=== PATIENT | female | born 1990 | race Caucasian/White ===

== ENCOUNTER 2022-09-15 16:31 | Outpatient (CLI) | payer OTHER, SELFPAY ==
[2022-09-15 18:03] LABS: Cholesterol* 192 mg/dL (90-199); Glucose* 82 mg/dL (60-115)
[2022-09-15 18:04] LABS: HDL Cholesterol* 73 mg/dL (>=50); LDL Cholesterol Calculated 94 mg/dL (<100); Triglycerides* 125 mg/dL (40-149)
[2022-09-15 18:20] LABS: Vitamin D 25 Hydroxy* 37 ng/mL (30-80)
== END 2022-09-15 16:32 | disposition home or self-care (01) ==
PROVIDERS: Visit Provider Registered Nurse
DX: Z01.419 Encounter for gynecological examination (general) (routine) without abnormal findings (principal); R45.86 Emotional lability; Z13.6 Encounter for screening for cardiovascular disorders; Z13.1 Encounter for screening for diabetes mellitus
CPT/HCPCS: 80061; 82306; 82947; 84443

== ENCOUNTER 2022-11-06 12:09 | Outpatient (CLI) | payer OTHER, SELFPAY ==
[2022-11-06 12:24] VITALS: BP 100/59; PULSE 68
[2022-11-06 12:25] VITALS: BP 100/59; PULSE 68; PULSE 71; RESP 14; TEMP 36.9; O2SAT 98
[2022-11-06 13:14] VITALS: BP 100/59; PULSE 68; RESP 14; TEMP 36.9; O2SAT 98
== END 2022-11-06 13:20 | disposition home or self-care (01) ==
LOC: OB CLI 12:10 → OB 12:43
PROVIDERS: Visit Provider Obstetrics & Gynecology
DX: O03.9 Complete or unspecified spontaneous abortion without complication (principal)
CPT/HCPCS: 36415; 84702; 85461; 99211; J2791

== ENCOUNTER 2022-11-26 13:27 | Outpatient (CLI) | payer OTHER, SELFPAY ==
[2022-11-26 16:32] LABS: HCG Quantitative* < 2.39 mIU/mL
== END 2022-11-26 13:28 | disposition home or self-care (01) ==
PROVIDERS: Visit Provider Obstetrics & Gynecology
DX: O20.9 Hemorrhage in early pregnancy, unspecified (principal)
CPT/HCPCS: 84702

== ENCOUNTER 2023-03-23 12:20 | Outpatient (CLI) | payer OTHER, SELFPAY ==
--- NOTE | 2023-03-23 12:15 | CRLHL7_ITS ---
For Patients: As a result of the Century Cures Act, medical imaging exams and procedure reports are released immediately into your electronic medical record. You may view this report before your referring provider. If you have questions, please contact your health care provider. INDICATION: First trimester scan, establish dates. COMPARISON: None. TECHNIQUE: Real-time mckinney-scale imaging of the pelvis was performed. FINDINGS: pole is presence within an intrauterine gestational sac with a crown-rump length of 2.2 cm, 8 weeks 6 days. No heart tones. 3.2 cm simple cyst right ovary. Unremarkable left ovary. Prominent yolk sac measuring 6 millimeters. IMPRESSION: Nonviable intrauterine . Dictated by Junior Alfaro MD @ 03/23/2023 1:09:58 PM (Electronically Signed)
== END 2023-03-23 12:21 | disposition home or self-care (01) ==
LOC: US 12:20
PROVIDERS: Visit Provider Registered Nurse
DX: Z34.91 Encounter for supervision of normal pregnancy, unspecified, first trimester (principal)
CPT/HCPCS: 76817

== ENCOUNTER 2023-06-01 16:20 | Outpatient (CLI) | payer OTHER, SELFPAY | END 2023-06-01 16:21 | disposition home or self-care (01) | PROVIDERS: Visit Provider Obstetrics & Gynecology | DX: N96 Recurrent pregnancy loss (principal) | CPT/HCPCS: 84702 ==

== ENCOUNTER 2023-06-03 16:15 | Outpatient (CLI) | payer OTHER, SELFPAY | END 2023-06-03 16:16 | disposition home or self-care (01) | LOC: NFLDREF 06-04 08:22 | PROVIDERS: Visit Provider Obstetrics & Gynecology | DX: N96 Recurrent pregnancy loss (principal) | CPT/HCPCS: 84702 ==

== ENCOUNTER 2023-06-22 13:50 | Outpatient (CLI) | payer OTHER, SELFPAY ==
--- NOTE | 2023-06-22 14:00 | CRLHL7_ITS ---
For Patients: As a result of the Century Cures Act, medical imaging exams and procedure reports are released immediately into your electronic medical record. You may view this report before your referring provider. If you have questions, please contact your health care provider. INDICATION: First trimester scan, establish dates. COMPARISON: None. TECHNIQUE: Real-time mckinney-scale imaging of the pelvis was performed. FINDINGS: Sonographic imaging demonstrates a single living intrauterine gestation. The embryo demonstrates a regular cardiac rate measuring 154 beats per minute. The embryo`s crown-rump length measurement of 1.3 cm corresponds to a gestational age of 7 weeks 3 days with a sonographic due date of 02/05/2024. There is a normal-appearing yolk sac. There are no gross abnormalities noted within the embryo at this early state of development. The gestational sac has a normal appearance. There is a 3.1 x 0.8 x 2.5 cm perigestational hemorrhage. The amount of fluid within the sac appears appropriate for gestational age. The cervix is closed. The myometrium appears normal. The ovaries are of normal size. Corpus luteal cyst right ovary. There are no suspicious fluid collections noted in the cul-de-sac. IMPRESSION: Single living intrauterine with sonographic gestational age 7 weeks 3 days and sonographic due date 02/05/2024. Superior perigestational hemorrhage measuring 3.1 x 0.8 x 2.5 cm. Dictated by Junior Alfaro MD @ 06/23/2023 10:21:05 AM (Electronically Signed)
== END 2023-06-22 13:51 | disposition home or self-care (01) ==
LOC: US 13:51
PROVIDERS: Visit Provider Obstetrics & Gynecology
DX: Z34.91 Encounter for supervision of normal pregnancy, unspecified, first trimester (principal); O20.9 Hemorrhage in early pregnancy, unspecified; Z3A.01 Less than 8 weeks gestation of pregnancy
CPT/HCPCS: 76817

== ENCOUNTER 2023-06-22 15:02 | Outpatient (CLI) | payer OTHER, SELFPAY ==
[2023-06-22 22:04] LABS: Chlamydia DNA Amplified* NOT DETECTED (No Detected); GC DNA Amplified* NOT DETECTED (No Detected)
== END 2023-06-22 15:03 | disposition home or self-care (01) ==
PROVIDERS: Visit Provider Registered Nurse
DX: Z34.91 Encounter for supervision of normal pregnancy, unspecified, first trimester (principal); Z3A.01 Less than 8 weeks gestation of pregnancy
CPT/HCPCS: 86592; 86703; 86762; 86787; 86803; 86850; 86870; 86880; 86900; 86901; 87086; 87340; 87491; 87591

== ENCOUNTER 2023-09-14 13:58 | Outpatient (CLI) | payer OTHER, SELFPAY ==
--- NOTE | 2023-09-14 14:00 | CRLHL7_ITS ---
For Patients: As a result of the Century Cures Act, medical imaging exams and procedure reports are released immediately into your electronic medical record. You may view this report before your referring provider. If you have questions, please contact your health care provider. INDICATION: Evaluate anatomy. COMPARISON: 06/22/2023 TECHNIQUE: Real time mckinney scale imaging of the fetus was performed as well as color Doppler analysis of the umbilical vessels. FINDINGS: Sonographic imaging demonstrates a single living intrauterine gestation. Fetus demonstrates a regular cardiac rate of 152 beats per minute. Fetus has a variable position. The placenta lies posteriorly. Complete previa noted. This is confirmed with transvaginal imaging. Amniotic fluid volume appears normal. Single deepest vertical pocket: 4.4 cm. The cervix is closed and measures 3.2 cm in length. The composite ultrasound gestational age is calculated at 19 weeks 6 days with an estimated sonographic due date of 02/02/2024. The estimated weight is 335 grams which lies at the 54th %. The following biometric measurements were obtained: Biparietal diameter: 4.4 cm/19 weeks 2 days 23rd% Head circumference: 16.7 cm/19 weeks 2 days 16th% Abdominal circumference: 15.6 cm/20 weeks 5 days 70th% Femur length: 3.1 cm/19 weeks 5 days 32nd% The HC/AC ratio measures: 1.07 range (1.08-1.26) On anatomic survey, there is a normal appearance of the cerebral ventricles, cavum septi pellucidi, cisterna magna and cerebellum. The nose, lips, and facial profile appear normal. The cervical, thoracic and lumbar spine are well visualized and appear normal. There is a normal four-chamber heart view and the left and right ventricular outflow tracts appear normal. The diaphragm and stomach appear normal. The kidneys and bladder also appear normal. There is a normal three-vessel cord and cord insertion site. The four extremities appear normal. IMPRESSION: Concordance of clinical and sonographic dating. Posterior placenta with complete previa. Echogenic focus in the stomach appears to be present. The remainder of the anatomic survey is normal. Level 2 ultrasound should be considered. Dictated by Junior Alfaro MD @ 09/15/2023 8:28:50 AM (Electronically Signed)
== END 2023-09-14 13:59 | disposition home or self-care (01) ==
LOC: US 13:59
PROVIDERS: Visit Provider Registered Nurse
DX: Z34.92 Encounter for supervision of normal pregnancy, unspecified, second trimester (principal); O44.02 Complete placenta previa NOS or without hemorrhage, second trimester; Z3A.19 19 weeks gestation of pregnancy
CPT/HCPCS: 76805; 76817

== ENCOUNTER 2023-11-09 15:06 | Outpatient (CLI) | payer OTHER, SELFPAY | END 2023-11-09 15:07 | disposition home or self-care (01) | LOC: NFLDREF 11-16 12:23 | PROVIDERS: Visit Provider Registered Nurse | DX: Z34.93 Encounter for supervision of normal pregnancy, unspecified, third trimester (principal); Z3A.28 28 weeks gestation of pregnancy | CPT/HCPCS: 86592; 86850 ==

== ENCOUNTER 2023-11-10 13:39 | Outpatient (CLI) | payer OTHER, SELFPAY | END 2023-11-10 13:40 | disposition home or self-care (01) | PROVIDERS: Visit Provider Registered Nurse | DX: Z34.93 Encounter for supervision of normal pregnancy, unspecified, third trimester (principal); O44.43 Low lying placenta NOS or without hemorrhage, third trimester; Z3A.28 28 weeks gestation of pregnancy | CPT/HCPCS: J2791 ==

== ENCOUNTER 2023-11-16 08:30 | Outpatient (CLI) | payer OTHER, SELFPAY | END 2023-11-16 08:31 | disposition home or self-care (01) | LOC: NFLDREF 11-21 05:44 | PROVIDERS: Visit Provider Registered Nurse | DX: Z34.90 Encounter for supervision of normal pregnancy, unspecified, unspecified trimester (principal) | CPT/HCPCS: 82951; 82952 ==

== ENCOUNTER 2024-01-04 14:44 | Outpatient (CLI) | payer OTHER, SELFPAY ==
[2024-01-05 13:32] LABS: Strep B DNA Probe POSITIVE (Negative)
[2024-01-05 13:48] LABS: Strep B Susceptibility Needed? No
== END 2024-01-04 14:45 | disposition home or self-care (01) ==
LOC: NFLDREF 14:45
PROVIDERS: Visit Provider Obstetrics & Gynecology
DX: Z34.93 Encounter for supervision of normal pregnancy, unspecified, third trimester (principal)
CPT/HCPCS: 87081; 87653

== ENCOUNTER 2024-01-31 18:42 | Emergency (ER) | payer OTHER, SELFPAY ==
[2024-01-31 18:47] VITALS: BP 116/73; PULSE 77; RESP 20; TEMP 36.5; O2SAT 97; BMI 26.7
--- NOTE | 2024-01-31 19:03 | ED.GENADULT ---
HPI - General Adult General Time Seen by Provider: 19:03 Date Seen: 01/31/24 Chief complaint: Cough Stated complaint: Coughed so hard heard pops-ribs hurt-40 wks preg Time Seen by Provider: 01/31/24 19:02 Source: patient and RN notes reviewed Mode of arrival: ambulatory Limitations: no limitations History of Present Illness HPI narrative: This 33-year-old female is coming in with left rib/chest wall pain that happened after coughing. She states she coughs so hard that she felt a pop in her left chest wall, now it hurts. She is 40 weeks , is not having any fevers. She has noticed the last 4 days some left nasal yellowish drainage, some pressure on that side. Nothing is coming out of the right side. She has been sick for about 2-3 weeks. She did a negative home COVID test. Her son was sick with a cough at some point, there was exposure to RSV in daycare. She did not test for RSV or influenza at any time, declines testing at this point. She has been sick with this for about 2-3 weeks already, is coming in because of the left chest wall pain. It is hurting to breathe and cough along the chest wall. He can her with movement as well. Related Data Home Medications Medication Instructions Recorded Confirmed docosahexaenoic acid 200 mg mg PO 09/15/22 01/31/24 capsule ( DHA) famotidine 20 mg tablet 20 mg PO QHS 12/08/23 01/31/24 Previous Rx's Medication Instructions Recorded Blood Glucose Meter #1 ea 11/16/23 Test Strips #100 ea 11/16/23 lancets #100 ea 11/16/23 Allergies Allergy/AdvReac Type Severity Reaction Status Date / Time No Known Drug Allergies Allergy Verified 01/31/24 18:24 Review of Systems Narrative: As per HPI. [facility] Medical History Low-lying placenta ?O44.40 - Low lying placenta NOS or without hemorrhage, unspecified trimester (ICD-10) Placenta previa ?O44.00 - Complete placenta previa NOS or without hemorrhage, unspecified trimester (ICD-10) Missed ab (03/25/23) ?O02.1 - Missed (ICD-10) Spontaneous miscarriage (11/06/22) ?O03.9 - Complete or unspecified spontaneous without complication (ICD-10) Gestational diabetes ?O24.419 - Gestational diabetes mellitus in , unspecified control (ICD-10) Vaginal delivery (03/19/20) ?O80 - Encounter for full-term uncomplicated delivery (ICD-10) Reduced libido ?R68.82 - Decreased libido (ICD-10) Normal spontaneous vaginal delivery ?O80 - Encounter for full-term uncomplicated delivery (ICD-10) History of irregular menstrual cycles ?Z87.42 - Personal history of other diseases of the female genital tract (ICD-10) History of dysmenorrhea ?Z87.42 - Personal history of other diseases of the female genital tract (ICD-10) Congenital adrenal hyperplasia ?E25.0 - Congenital adrenogenital disorders associated with enzyme deficiency (ICD-10) Surgical History Status post D&C (03/25/23) ?Z98.890 - Other specified postprocedural states (ICD-10) Social History What is your current living situation?: I presently have a place to live Problems where you live: no known problems In the past 12 months, utilities in danger of being shut off: no In past 12 months, lack of transportation kept you from medical appts, meetings, work, or getting things needed for daily living: no How hard is it for you to pay for the very basics like food, housing, medical care, and heating: not very hard Smoking Status: Never smoker How often do you have a drink containing alcohol: never AUDIT-C Alcohol total score: 0 Non-prescribed substance use: denies use Caffeine: No How often does anyone, including family, friends and others, physically hurt you: never How often does anyone, including family, friends and others, insult or talk down to you: never How often does anyone, including family, friends and others, threaten you with harm: never How often does anyone, including family, friends and others, scream or curse at you: never Little interest or pleasure in doing things: not at all Feeling down, depressed, or hopeless: not at all Are you using contraception or practicing any form of control: No Exam Const: Vital Signs, click to edit/add: Vital Signs - 24 hr 01/31/24 18:47 Temperature 97.7 F Pulse Rate [Pulse Oximeter] 77 Respiratory Rate 20 Blood Pressure [Ri ght Upper Arm] 116/73 Pulse Oximetry 97 Oxygen Delivery Me thod Room Air Lv is a 33-year-old female with obvious gravid uterus. She is sitting in the chair somewhat stiffly, looks a bit uncomfortable. She is able to speak in complete sentences, speech is normal. Pupils are equal round, sclera clear. TMs are normal. Her mucosa in the anterior nares looks slightly erythematous, see no discharge. She has some mild tenderness over the medial maxillary sinus area. Oropharynx normal, no exudates erythema, dentition good repair. Neck is supple. She has no neck adenopathy or masses. She is breathing slowly, I do not hear any crackles or wheezing, there is good air entry. She has some point tenderness along the posterior angle of the low lower ribs. I do not feel any step-off or crepitus. CV regular rate and rhythm, no murmur. Documenting provider has reviewed patient's vital signs: yes Course Course ED Course: We discussed imaging with chest x-ray with left rib views. She is 40 weeks and this should be minimal radiation to the fetus. Will see if we see any possible rib fracture from coughing, rule out underlying consolidative pneumonia. We did discuss with her left-sided maxillary sinus symptoms and left nasal drainage, would consider antibiotics for sinusitis. Reevaluation(s) Time of Reevaluation #1: 20:31 Reevaluation #1: Reviewed negative chest imaging with patient. She is is a likely symptomatic from pulled muscle from coughing. Unfortunately being 40 weeks , rib limited to what we can use as far as medicines. She can check her paperwork, her twisting frame operator likely has an [id number] cough and cold medicine that she can use. I do wonder if her sinus symptoms are contributing. We did discuss that postnasal drainage can cause problems with coughing. She is only having drainage from her left side in some pain over the maxillary sinus. I do think a trial of antibiotics with amoxicillin is warranted. We discussed that this antibiotic is certainly safe in . We also reviewed potentially trying some nasal steroid such is Nasacort or Flonase. She can get this [id number]. Vital Signs Vital signs: Initial Vital Signs Temperature 97.7 F 01/31/24 18:47 Temperature Source Temporal Artery Scan 01/31/24 18:47 Pulse Rate 77 01/31/24 18:47 Respiratory Rate 20 01/31/24 18:47 Blood Pressure 116/73 01/31/24 18:47 Blood Pressure Mean 87 01/31/24 18:47 Blood Pressure Position Sitting 01/31/24 18:47 Pulse Oximetry 97 01/31/24 18:47 Oxygen Delivery Method Room Air 01/31/24 18:47 Vital Signs Temperature 97.7 F 01/31/24 18:47 Pulse Rate 77 01/31/24 18:47 Respiratory Rate 20 01/31/24 18:47 Blood Pressure 116/73 01/31/24 18:47 Pulse Oximetry 97 01/31/24 18:47 Oxygen Delivery Method Room Air 01/31/24 18:47 Temperature 97.7 F 01/31/24 18:47 Pulse Rate 77 01/31/24 18:47 Respiratory Rate 20 01/31/24 18:47 Blood Pressure 116/73 01/31/24 18:47 Pulse Oximetry 97 01/31/24 18:47 Oxygen Delivery Method Room Air 01/31/24 18:47 Medical Decision Making Imaging Data Chest x-ray: Attestation: I have reviewed the pertinent imaging results. Radiologist's impression: Patient: LV EMERY Facility:?[facility] Patient ID:?[id number] Site Patient ID:?[id number] Site :?1990 Study:?XRay Chest RIBS W [id number]/31/2024 7:47:47 PM Ordering Physician:?MORGAN Final Report: INDICATION: Left-sided rib pain. Cough. patient. TECHNIQUE: Chest and left rib radiographs, 2 views. COMPARISON: None. FINDINGS: Cardiovascular/Mediastinum: Normal heart size. Unremarkable. Lungs: No focal consolidation. Airways: Trachea remains midline. Pleura: No pleural effusions or pneumothorax. Bones: Radiopaque BB marker overlying the left anterior chest wall in the region of the patient`s pain. No acute osseous abnormalities. No acute displaced rib fractures on the dedicated oblique views . Upper abdomen: Unremarkable. IMPRESSION: No acute cardiopulmonary process. No acute displaced rib fractures. No pleural effusions or pneumothorax. Dictated by Eyad Chaparro MD @ 01/31/2024 8:20:17 PM (Electronic Signature) Critical Care Time Critical Care Time Critical Care Time: No Discharge Plan Discharge Clinical Impression: Acute chest wall pain, Left maxillary sinusitis Patient Disposition: Home, Self-Care Condition: Stable Instructions: Sinusitis (ED), Chest Wall Pain (ED) Additional Instructions: Start amoxicillin 5 mg 3 times a day for 10 days for sinusitis. If you indeed are having left maxillary sinusitis symptoms, this can cause postnasal drainage and cause coughing. Use the splinting technique that we reviewed for coughing, sneezing, turning or moving. If you develop fever, have increasing cough, are having further concerning symptoms, do recommend re-evaluation. Can check with your twisting frame operator to see what aysk-xqd-[id number] cough and cold medicines they recommend in . Prescriptions: No Action famotidine 20 mg tablet 20 mg PO QHS DHA 200 mg capsule PO (DME) Test Strips Misc See Rx Instructions .MEDSUPPLY Qty: 100 3RF Rx Instructions: Check blood sugar 4 times daily. AM fasting and 2 hours after meals. (DME) lancets Misc See Rx Instructions .MEDSUPPLY Qty: 100 3RF Rx Instructions: Check blood sugar 4 times daily. AM fasting and 2 hours after meals. (DME) Blood Glucose Meter Misc See Rx Instructions .MEDSUPPLY Qty: 1 0RF Rx Instructions: As directed Follow Up/Referrals: Provider,Not a Local [Primary Care Provider] - Stand Alone Forms: [employer] Info Instructions
--- NOTE | 2024-01-31 19:08 | XR_ITS ---
Patient: LV EMERY Facility:?[facility] Patient ID:?[id number] Site Patient ID:?[id number] Site :?1990 Study:?XRay-Chest RIBS W [id number]/31/2024 7:47:47 PM Ordering Physician:TERRY Final Report: INDICATION: Left-sided rib pain. Cough. patient. TECHNIQUE: Chest and left rib radiographs, 2 views. COMPARISON: None. FINDINGS: Cardiovascular/Mediastinum: Normal heart size. Unremarkable. Lungs: No focal consolidation. Airways: Trachea remains midline. Pleura: No pleural effusions or pneumothorax. Bones: Radiopaque BB marker overlying the left anterior chest wall in the region of the patient`s pain. No acute osseous abnormalities. No acute displaced rib fractures on the dedicated oblique views . Upper abdomen: Unremarkable. IMPRESSION: No acute cardiopulmonary process. No acute displaced rib fractures. No pleural effusions or pneumothorax. Dictated by Eyad Chaparro MD @ 01/31/2024 8:20:17 PM Signed by:?Eyad Chaparro MD @01/31/2024 8:20:17 PM (Electronic Signature)
[2024-01-31 20:44] VITALS: PULSE 71; RESP 18; O2SAT 98
== END 2024-01-31 20:48 | disposition home or self-care (01) ==
PROVIDERS: Emergency Provider Family Medicine
DX: R07.89 Other chest pain (principal); J01.00 Acute maxillary sinusitis, unspecified
CPT/HCPCS: 71101; 99283; 99284

== ENCOUNTER 2024-02-06 01:14 | Inpatient (IN) | payer OTHER, SELFPAY ==
[2024-02-06] VITALS (42 sets, daily range): BP systolic 96–145; BP diastolic 51–82; PULSE 48–95; RESP 16–18; TEMP 36.3–36.9; O2SAT 92–100; BMI 26.3
[2024-02-06 01:04] LABS: Amnisure Rom* POSITIVE
--- NOTE | 2024-02-06 01:15 | P.LDBA_ITS ---
Subjective History of Present Illness Narrative: Patient is being admitted to Labor and Delivery for PROM. She is a 33 year old at 40 weeks gestation. is complicated by GMDA1, echogenic intraabdominal foci and persistent right umbilical vein (low risk NIPT), GBS positivity, Rh negative, status, history of precipitous delivery, history of complete previa (RESOLVED). Her full history and physical was dictated by Dr. Chaparro on 01/11/24. Please see this for details. Patient was not examined, information gathered by EMR review and RN report. Vi presented after leaking of fluids at home. She has a recent URI, where leaking occurred with an episode of coughing. She notes infrequent contractions, non-painful. No vaginal bleeding. Endorses active movement. Specific Issues/Plans G 5 P 2021 GBS POSITIVE Declines genetic screening. 1. History of 2 recent miscarriages. Patient very anxious about current due to recent losses. * Reminded her that she is welcome to come in more frequently for heart tone check appointments. 2. History of gestational diabetes, diet controlled. Has GDM this too. * Hemoglobin A1c * Early GDM testing between 16 and 20 weeks: passed * 28 weeks: 1 hour gct: 153; plan 3 hour gtt: abnormal: GDM * Good BS control with diet (01/04/24) 3. Subchorionic hemorrhage measuring 3.1 x 0.8 x 2.5 cm. 4. A negative, antibody screen positive at 1st OB. * Antibody identification is anti D. She had RhoGAM in March 2023 when she experienced a miscarriage and had a suction curettage procedure which is why the antibody screen is positive at this time. * 28 weeks: negative jo-ann screen. Rhogam administered 11/10/23. 5. Complete previa at 20 week FAS. Pelvic rest. Call with any bleeding. * Follow-up ultrasound: Low lying placenta * US to recheck placenta 28-32 weeks. * MFM 11/30/2023 31w0d F/U US: Vtx, SDP 6.1cm, Post placenta 1.9cm from the os (continued low lying). EFW 33%. Persistent right umbilical vein and a small intra-abdominal calcification is noted lateral and posterior to the stomach in the area of the spleen which is unchanged in size and appearance from previous scans. Planning follow-up ultrasound in 4 weeks to reassess growth, anatomy and placental location * F/U US with MFM 12/27/23: vertex, placenta > 2 cm from os, EFW 2270 g or 5# 0oz (19%), intra-abdominal calcification appears stable and the persistent right umbilical vein is seen again. Pediatrics should be notified of these findings at the time of delivery, and is recommended that they be present at the delivery if possible. 6. History of precipitous delivery 7. GBS POSITIVE * Antibiotics during labor. No PCN allergy. NIPT: negative Level 2 US: -right umbilical vein: recommend echo w/ peds cardiology consult and growth US at 28 weeks. -small echogenic focus adjacent to stomach: awaiting cell free DNA results -complete previa: rec. pelvic rest and avoidance of strenuous activity and vigorous exercise; repeat US at 28 weeks echo, peds cardiology and f/u MFM and US for growth, placenta, and echogenic focus in abdomen scheduled in 3-4 weeks. echo: Normal [facility] US 10/19/23: * Small intra abdominal calcification noted lateral and posterior to stomach in area of spleen. Persistent right umbilical vein also noted. Otherwise, no other anomalies detected. * Placenta low lyin11/30/23 continued low-lying 1.9cm from the os. * Congenital adrenal hyperplasia noted on record problem list: did not complete evaluation for CAH at her infertility clinic. Her initial workup showed a 17-OHP level of 361 ng/dL. 12/06/23 [facility] genetic counselor discussed evaluation w/ the [facility]. [facility] for more detailed evaluation and will likely have carrier testing done there for 21-hydroxylase deficiency (CAH). IF she has CAH, it would be the non-classical type. Chance of her child having CAH (21-hydroxylase deficiency) is 1/122 w/o she and her spouse having carrier testing done. COVID: Completed, not boosted. Recommended. Flu: 11/25/23 TDAP: 11/25/23 RSV: Declined RHOGAM: 11/10/23 H&P: 01/11/[address] Chaparro OB - Problem Based A/P Additional Plan (1) Rupture, membranes, premature: Status: Acute (2) Gestational diabetes: Status: Acute (3) Abnormal ultrasound: Status: Acute (4) Recurrent loss: Status: Acute (5) Rh negative, maternal: Status: Acute Plan Vi is a 33yo at 40w5d [place] admitted for PROM. is GMDA1, echogenic intraabdominal foci and persistent right umbilical vein (low risk NIPT), GBS positivity, Rh negative, status, history of precipitous delivery, history of complete previa (RESOLVED). Patient was not examined, information gathered by EMR review and RN report. - Admit to labor and delivery - BT A negative, obtain T/S - GBS positive, start ampicillin - Plan pitocin augmentation in the setting of PROM with adequate treatment of GBS - GDMA1 management per protocol OB Exam Physical Exam Vital signs: Temp Pulse Resp BP 97.8 F 63 17 111/62 02/06/24 00:47 02/06/24 00:47 02/06/24 00:47 02/06/24 00:47 Narrative: VS Reviewed. Reactive NST. Amnisure positive.
[2024-02-06] MEDS: AMPICILLIN 2 GM in 0.9 % SODIUM CHLORIDE Mini-bag 100 ML IVPB (01:37)
[2024-02-06] MEDS: LACTATED RINGERS 1000 ML 1,000 ML 125 ML IV (02:41)
[2024-02-06] MEDS: AMPICILLIN 1 GM in 0.9 % SODIUM CHLORIDE Mini-bag 100 ML IVPB ×2 (05:34→09:22)
[2024-02-06] MEDS: OXYTOCIN 30 unit/500 ML in NS 30 UNIT/500 ML BAG IVPB (05:45)
[2024-02-06] MEDS: CALCIUM CARBONATE 500 MG CHEW PO (05:53)
--- NOTE | 2024-02-06 07:53 | PM.OBPNL ---
Subjective Time Seen by Provider: 07:30 Date Seen: 02/06/24 Narrative: Patient comfortable, sitting up on the couch. Contractions getting closer together, stops talking through. Objective Vital Signs: Last Vital Signs Temp 98.1 F 02/06/24 04:34 Pulse 75 02/06/24 07:50 Resp 16 02/06/24 04:34 BP 117/70 02/06/24 07:50 Pelvic Exam Dilation (cm): 2.5 Effacement (%): 60 Station: -2 Comments: Exam per nursing staff, external os noted to be 6 cm. Contractions Monitor mode: External Contraction Frequency: 6 minutes Contraction pattern: Regular Contraction intensity: Mild Pitocin Rate (mU/min): 3 Assessment Assessment: prodromal labor Station: -2 Amniotic Membrane Status: SROM Status: Category l Heart Rate Baseline: 135 [employer]rication Department Supervisor Variability: Moderate (6-25) Monitor Accelerations: Present Monitor Decelerations: None Plan Plan: Continue pitocin infusion. Discussed pain management plan. Patient undecided, considering epidural or ITN.
[2024-02-06] MEDS: fentaNYL 100 MCG/2 ML inj 25 MCG INTRATHECA (10:09)
--- NOTE | 2024-02-06 10:10 | PM.ANBPRC ---
[facility] Medical History Low-lying placenta ?O44.40 - Low lying placenta NOS or without hemorrhage, unspecified trimester (ICD-10) Placenta previa ?O44.00 - Complete placenta previa NOS or without hemorrhage, unspecified trimester (ICD-10) Missed ab (03/25/23) ?O02.1 - Missed (ICD-10) Spontaneous miscarriage (11/06/22) ?O03.9 - Complete or unspecified spontaneous without complication (ICD-10) Gestational diabetes ?O24.419 - Gestational diabetes mellitus in , unspecified control (ICD-10) Vaginal delivery (03/19/20) ?O80 - Encounter for full-term uncomplicated delivery (ICD-10) Reduced libido ?R68.82 - Decreased libido (ICD-10) Normal spontaneous vaginal delivery ?O80 - Encounter for full-term uncomplicated delivery (ICD-10) History of irregular menstrual cycles ?Z87.42 - Personal history of other diseases of the female genital tract (ICD-10) History of dysmenorrhea ?Z87.42 - Personal history of other diseases of the female genital tract (ICD-10) Congenital adrenal hyperplasia ?E25.0 - Congenital adrenogenital disorders associated with enzyme deficiency (ICD-10) Surgical History Status post D&C (03/25/23) ?Z98.890 - Other specified postprocedural states (ICD-10) Social History What is your current living situation?: I presently have a place to live Problems where you live: no known problems In the past 12 months, utilities in danger of being shut off: no In past 12 months, lack of transportation kept you from medical appts, meetings, work, or getting things needed for daily living: no How hard is it for you to pay for the very basics like food, housing, medical care, and heating: not very hard In the past 12 mos, have been you worried that your food would run out before you had money to buy more?: never true In the past 12 mos, the food you bought just didn't last and you didn't have money to buy more?: never true Smoking Status: Never smoker How often do you have a drink containing alcohol: never AUDIT-C Alcohol total score: 0 Non-prescribed substance use: denies use Caffeine: No How often does anyone, including family, friends and others, physically hurt you: never How often does anyone, including family, friends and others, insult or talk down to you: never How often does anyone, including family, friends and others, threaten you with harm: never How often does anyone, including family, friends and others, scream or curse at you: never Little interest or pleasure in doing things: not at all Feeling down, depressed, or hopeless: not at all Are you using contraception or practicing any form of control: No Meds Home Medications and Allergies Home Medications Medication Instructions Recorded Confirmed Type docosahexaenoic acid 200 mg 200 mg PO DAILY 09/15/22 02/06/24 History capsule ( DHA) famotidine 20 mg tablet 20 mg PO QHS 12/08/23 02/06/24 History amoxicillin 500 mg capsule 500 mg PO TID 02/03/24 02/06/24 History Allergies Allergy/AdvReac Type Severity Reaction Status Date / Time No Known Drug Allergies Allergy Verified 02/06/24 00:45 Results Labs Labs: Laboratory Results - last 24 hr 02/06/24 02/06/24 00:44 01:35 Membrane Rupture POSITIVE Blood Type A Negative Antibody Screen POSITIVE Vital Signs Vital Signs: Last Vital Signs Temp 98.1 F 02/06/24 04:34 Pulse 65 02/06/24 10:08 Resp 16 02/06/24 04:34 BP 123/63 02/06/24 10:08 Pulse Ox 100 02/06/24 10:07 Weight: 67.449 kg Height: 160.02 cm Anesthesia Procedures Intrathecal Patient Location: OB Start Time: 09:59 Stop Time: 10:04 Start Date: 02/06/24 Stop Date: 02/06/24 Reason for Block: procedure for pain Patient Position: sitting Performed By: Dami Matthew Preanesthetic Checklist: IV checked, risks and benefits discussed, monitors and equipment checked, pre-op evaluation, timeout performed and anesthesia consent Prep: chlorhexidine gluconate Monitoring: blood pressure monitoring, continuous pulse oximetry and heart rate Approach: midline Vertebral Space: lumbar (1-5) Needle Type: Pencan Injection Technique: single-shot Needle gauge: 25 Needle Length (cm): 10 cm
--- NOTE | 2024-02-06 10:36 | W.PM.OBVAGDE ---
OB Procedure Vag Delivery Mother Details Mother Details: The patient is a 33 year-old, 5, Para 2021, admitted on 02/06/24 at 40 5/7 weeks gestation following spontaneous premature rupture of membranes at term. : 5 Para: 2 Weeks Gestation: 40.5 Admission Date: 02/06/24 Additional Details Amniotic Membrane Status: SROM Amniotic Membrane Rupture Date: 02/06/24 Amniotic Membrane Rupture Time: 00:30 Amniotic Membrane Fluid Description: Clear (initally, then light mec noted just before delivery) Analgesia/Anesthesia Type: Intrathecal Waterbirth: No Pitcoin: Yes Intrapartal Events: Labor Augmentation (pitocin, to max of 4 mu/min), Mod/Heavy Meconium Fluid and Precipitous Labor <3 Hrs Delivery augmentation: pitocin Labor Onset: 09:25 Complete: 10:05 Pushin:05 Heart: heart tones during second stage were 145 bpm baseline, good variability, discontinuous. Delivery Details Delivery Date: 02/06/24 Route of delivery: Infant Gender: Female Viability: Alive; Heart Rate Present Position at Delivery: OA Delivery Details: Delivered over intact perineum via spontaneous vaginal delivery. Infant was placed on maternal abdomen.? Cord was clamped and cut after a 60 second delay. Nose and mouth were bulb suctioned.? weight pending. 1 Minute Interval Total Score: 7 5 Minute Interval Total Score: 8 Additional Details Shoulder Dystocia: No Placenta Delivery Time: 10:14 Placental Delivery Description: Spontaneous Blood Loss: 200 Laceration: None Blood Loss Measurement Type: EBL (delivered on the bed) Bakri Used: No Sponge/Need Count Correct: Yes Cord Vessel Description: 3 Vessels Event Summary Status: Mother and were stable after delivery. Disposition: floor
--- NOTE | 2024-02-06 12:25 | PM.ANPOST ---
Post Anesthesia Note Post Anesthesia Note Patient seen: Inpatient Respiratory Status: adequate Cardiovascular Status: adequate Mental Status: baseline Pain: adequate Temp: baseline Anesthetic awareness: N/A Complications: none Follow care: none
[2024-02-06] MEDS: ACETAMINOPHEN 500 MG TABLET 1000 MG PO ×2 (14:32→20:47)
[2024-02-06] MEDS: IBUPROFEN 600 MG TABLET PO (18:06)
[2024-02-07] MEDS: IBUPROFEN 600 MG TABLET PO ×2 (01:32→10:48)
[2024-02-07 01:35] VITALS: BP 118/77; PULSE 61; RESP 16; TEMP 36.4; O2SAT 97
[2024-02-07 04:10] VITALS: BP 105/70; PULSE 57; RESP 16; TEMP 36.4; O2SAT 97
[2024-02-07] MEDS: ACETAMINOPHEN 500 MG TABLET 1000 MG PO (05:51)
[2024-02-07 06:25] LABS: Hemoglobin* 11.9 gm/dL (12.0-16.0)
[2024-02-07 07:32] VITALS: BP 104/66; PULSE 70; RESP 16; TEMP 36.6; O2SAT 95
--- NOTE | 2024-02-07 09:09 | P.DS_ITS ---
DS: Providers Provider Date Seen: 02/07/24 Date of admission: 02/06/24 01:14 Primary care physician: Not a Local Provider Admitting Clinician: Gabbi Orellana MD Attending Physician on discharge: Emilia Claros CNM Date of Discharge: 02/07/24 DS: Diagnosis Discharge Diagnosis (1) care and examination immediately after delivery: Status: Acute (2) Lactating mother: Status: Acute Exam Narrative: Exam Narrative: GENERAL APPEARANCE:? normal affect, alert, no distress MOOD:? appropriate CHEST:? clear to auscultation HEART:? regular rate and rhythm ABDOMEN:? soft, non-tender the uterine fundus is firm At Umbilicus, Midline and is appropriate for the stage of recovery. PERINEUM:? mild edema of the perineum, intact EXTREMITIES:? normal and trace edema Const: Vital Signs, click to edit/add: Vital Signs - 24 hr 02/06/24 09:16 02/06/24 09:57 02/06/24 09:58 Temperature Pulse Rate 71 Pulse Rate [Right Pulse Oximeter] Respiratory Rate Blood Pressure 110/72 Blood Pressure [Ri ght Arm] Pulse Oximetry 99 [facility] 10:00 02/06/24 10:02 02/06/24 10:07 Temperature Pulse Rate 90 95 Pulse Rate [Right Pulse Oximeter] Respiratory Rate Blood Pressure 145/77 H 143/77 H Blood Pressure [Ri ght Arm] Pulse Oximetry [address]od 02/06/24 10:08 02/06/24 10:12 02/06/24 10:17 Temperature Pulse Rate 65 Pulse Rate [Right Pulse Oximeter] Respiratory Rate Blood Pressure 123/63 Blood Pressure [Ri ght Arm] Pulse Oximetry 100 99 [facility] 02/06/24 10:22 02/06/24 10:27 02/06/24 10:32 Temperature Pulse Rate 68 66 Pulse Rate [Right Pulse Oximeter] Respiratory Rate Blood Pressure 108/62 109/59 L Blood Pressure [Ri ght Arm] Pulse Oximetry 100 [facility] 02/06/24 10:36 02/06/24 10:47 02/06/24 10:57 Temperature Pulse Rate 66 72 68 Pulse Rate [Right Pulse Oximeter] Respiratory Rate Blood Pressure 119/56 L 131/78 110/53 L Blood Pressure [Ri ght Arm] Pulse Oximetry [facility] 02/06/24 11:00 02/06/24 11:07 02/06/24 11:11 Temperature 98.1 F Pulse Rate 58 L 60 Pulse Rate [Right Pulse Oximeter] Respiratory Rate 16 Blood Pressure 108/57 L 109/61 Blood Pressure [Ri ght Arm] Pulse Oximetry 100 [facility] 02/06/24 11:16 02/06/24 11:21 02/06/24 11:32 Temperature Pulse Rate 60 54 L 68 Pulse Rate [Right Pulse Oximeter] Respiratory Rate Blood Pressure 100/66 108/61 100/51 L Blood Pressure [Ri ght Arm] Pulse Oximetry [facility] 02/06/24 11:36 02/06/24 11:41 02/06/24 11:46 Temperature Pulse Rate 48 L 63 56 L Pulse Rate [Right Pulse Oximeter] Respiratory Rate Blood Pressure 99/57 L 99/58 L 98/56 L Blood Pressure [Ri ght Arm] Pulse Oximetry [facility] 02/06/24 11:51 02/06/24 11:56 02/06/24 12:01 Temperature Pulse Rate 56 L 51 L 68 Pulse Rate [Right Pulse Oximeter] Respiratory Rate Blood Pressure 107/61 103/60 108/61 Blood Pressure [Ri ght Arm] Pulse Oximetry [facility] 02/06/24 12:06 02/06/24 12:11 02/06/24 12:16 Temperature Pulse Rate 56 L 57 L 67 Pulse Rate [Right Pulse Oximeter] Respiratory Rate Blood Pressure 102/63 101/58 L 96/57 L Blood Pressure [Ri ght Arm] Pulse Oximetry [facility] 02/06/24 12:22 02/06/24 12:26 02/06/24 12:31 Temperature Pulse Rate 66 65 71 Pulse Rate [Right Pulse Oximeter] Respiratory Rate Blood Pressure 114/55 L 101/52 L 101/56 L Blood Pressure [Ri ght Arm] Pulse Oximetry [facility] 02/06/24 12:37 02/06/24 12:41 02/06/24 14:25 Temperature 98.2 F Pulse Rate 68 71 88 Pulse Rate [Right Pulse Oximeter] Respiratory Rate 18 Blood Pressure 105/57 L 109/62 99/63 Blood Pressure [Ri ght Arm] Pulse Oximetry 95 Oxygen Delivery Me thod 02/06/24 16:06 02/06/24 20:37 02/07/24 01:35 Temperature 97.3 F L 98.4 F 97.5 F L Pulse Rate 62 Pulse Rate [Right Pulse Oximeter] 61 61 Respiratory Rate 16 16 16 Blood Pressure 125/82 Blood Pressure [Ri ght Arm] 107/71 118/77 Pulse Oximetry 97 96 97 Oxygen Delivery Me thod Room Air Room Air 02/07/24 04:10 02/07/24 07:32 Temperature 97.5 F L 97.9 F Pulse Rate Pulse Rate [Right Pulse Oximeter] 57 L 70 Respiratory Rate 16 16 Blood Pressure Blood Pressure [Ri ght Arm] 105/70 104/66 Pulse Oximetry 97 95 Oxygen Delivery Me thod Room Air Room Air Documenting provider has reviewed patient's vital signs: yes OB - DS: Summary Hospital Course Hospital Course: Vi is a 33 y.o. who was admitted to [facility] for SROM. ?She had an uncomplicated NVD.?The patient feels well. ?The pain is well controlled with current medications. ?She has no new complaints. ?She is breast feeding and reports things are going well.? the patient has done well.? Vitals have been stable.? She has remained afebrile.? Has a good appetite, is tolerating a general diet. ?She is voiding without difficulty.? She is passing gas and has not yet had a bowel movement.? She is ambulating and denies any dizziness.? Has Small amount of rubra lochia. ?She is planning vasectomy for her partner and condoms for prevention. Peripartum Data delivery method: Vaginal Laceration description: None complications: none Infant Gender: Female Infant Discharge Plan: Home Status at Discharge Functional status at discharge: independent ambulation Overall status at discharge: patient is progressing back to baseline Time Spent with Patient Time attestation: Total time spent providing and/or coordinating discharge services: Time spent: Less than 30 minutes Discharge Plan Discharge Disposition: Home, Self-Care Date of Admission: 02/06/24 01:14 Attending Provider on Discharge: Emilia Claros Primary Care Provider: Provider,Not a Local Condition: Stable Anticipated Discharge Date/Time: 02/07/24 12:00 Discharge Medications: New acetaminophen 500 mg Tablet 1,000 mg PO Q6H PRNQty: 0 0RF docusate sodium 100 mg Capsule 100 mg PO DAILY Qty: 0 2RF ibuprofen 600 mg Tablet 600 mg PO Q6H PRNQty: 60 0RF Continued famotidine 20 mg tablet 20 mg PO QHS DHA 200 mg capsule 200 mg PO DAILY amoxicillin 500 mg capsule 500 mg PO TID (DME) Test Strips Misc See Rx Instructions .MEDSUPPLY Qty: 100 3RF Rx Instructions: Check blood sugar 4 times daily. AM fasting and 2 hours after meals. (DME) lancets Misc See Rx Instructions .MEDSUPPLY Qty: 100 3RF Rx Instructions: Check blood sugar 4 times daily. AM fasting and 2 hours after meals. (DME) Blood Glucose Meter Misc See Rx Instructions .MEDSUPPLY Qty: 1 0RF Rx Instructions: As directed Discharge Orders: Discharge Order (Routine); Ordered 02/07/24 Ordered By: Emilia Claros Patient Education: OB Over the Counter Medication Information, OB Vaginal/Breast Feeding Additional Instructions: Discharge instructions were reviewed with the patient including signs and symptoms of infection and home going medications Nothing vaginally for 6 weeks: no tampons or intercourse Off Work or School for 6 weeks 2-week visit: discuss feeding concerns, review control options and screen for anxiety/depression. 6-week visit for an annual exam. consultation services are available to all mothers and babies for the first year after delivery.? To make an appointment, please call [phone]. Activity Level: Activity as Tolerated Discharge Diet: Regular Follow Up Appointments: Provider,Not a Local [Primary Care Provider] - [facility] [Provider Group] Forms: [employer] Info Instructions
[2024-02-07 15:06] LABS: Rapid Plasma Reagin (RPR) Non Reactive (Non Reactive)
== END 2024-02-07 12:05 | disposition home or self-care (01) | DRG 807 ==
LOC: OB OUT 01:15 → OB 01:15
PROVIDERS: Admitting Provider Obstetrics & Gynecology; Visit Provider Obstetrics & Gynecology
DX: O42.02 Full-term premature rupture of membranes, onset of labor within 24 hours of rupture (principal); Z37.0 Single live birth; O24.420 Gestational diabetes mellitus in childbirth, diet controlled; Z3A.40 40 weeks gestation of pregnancy; O99.824 Streptococcus B carrier state complicating childbirth; O26.893 Other specified pregnancy related conditions, third trimester; Z67.11 Type A blood, Rh negative; N96 Recurrent pregnancy loss; E25.0 Congenital adrenogenital disorders associated with enzyme deficiency; O28.3 Abnormal ultrasonic finding on antenatal screening of mother; O62.3 Precipitate labor; O77.0 Labor and delivery complicated by meconium in amniotic fluid
CPT/HCPCS: 01967; 36415; 82962; 84112; 85018; 86592; 86850; 86870; 86880; 86900; 86901; 88307; A9270; J0290; J2371; J3010; J7120

== ENCOUNTER 2024-02-15 10:11 | Outpatient (CLI) | payer OTHER, SELFPAY ==
--- NOTE | 2024-02-15 17:00 | P.LACCB_ITS ---
Consult Note - Mom Date of Visit Date of visit: 02/15/24 lean process deployment consultant: Antonina Brownlee Visit Code: Visit Patient's Information Phone number: [phone] : 3 Para: 3 Allergies No Known Drug Allergies Allergy (Verified 02/06/24 00:45) Mother's Medical History: Medical History (Updated 02/08/24 @ 00:00 by Background Daemon) Low-lying placenta ?O44.40 - Low lying placenta NOS or without hemorrhage, unspecified trimester (ICD-10) Placenta previa ?O44.00 - Complete placenta previa NOS or without hemorrhage, unspecified trimester (ICD-10) Gestational diabetes ?O24.419 - Gestational diabetes mellitus in , unspecified control (ICD-10) Work Plans: is taking this next year off Delivery Information Delivery type: Vaginal Weeks Gestation: 40.5 Gestational Age: AGA Weight: 3.58 kg Discharge Weight: 3.508 kg Baby's Information Baby's Age at Visit: 9 days Baby's Provider or Clinic: Dr. Li Jaundice: No Reason for Consult Reason for Consult: painful latch Past Experience Past Experience: Yes (nursed her older children about 1 year each) Current Frequency of Day Feedings: about every three hours Frequency of Night Feedings: once overnight Both Breasts: Yes Suck: strong Latch: fairly wide Length of Time: 10 - 15 minutes/side Goals: increased comfort Pumping Pumping: No Supplementing EMB Supplement: No Formula Supplement: No Baby Elimination Number of Wet Diapers a Day: almost every feeding Number of BM a Day: 1 - 2 times/day Breast/Nipple Condition Breast Information: WNL Maternal Nipple Condition - Left: Common Nipple Maternal Nipple Condition - Right: Common Nipple Sore Nipples: Yes Onsite Pre-Feed weight: 3.886 kg Post-Feed weight: 4.006 kg Milk Transferred (mL): 120 Assessments/Interventions Assessments/Interventions: Met with mom and this now 9 day old ex- term AGA baby for consult. Mom reports has been painful from the beginning and she developed blood blisters on her nipples last week. They are healing, but nursing is still uncomfortable. Baby is nursing about every three hours during the day and once overnight. Mom offers both sides and states the sessions last 10 - 15 minutes/side. She hasn't started pumping or offering any supplement. Breasts WNL- symmetrical with rounded lower quadrants, intramammary distance < 1.5 inches. Nipples are everted and don't flatten or retract on compression. Both nipples have several fissures running across them and the right has a few scabbed areas from the blisters. Baby has gained 64 grams/day since her her NB visit on 02/08 and she's now 306 grams (10 oz) above BW at 9 DOL. Mom denies any caput/cephalohematoma at delivery. She thinks baby favors resting her head on the left but has equal ROM when moving her extremities. Her palate is a little high. Her upper frenulum is somewhat difficult to flange and her upper lip has a suck blister in the center. She has a strong suck on a finger and the tongue extends over the gumline, but not consistently. There was some canoeing with lateralization and the lower frenulum wasn't visualized. Mom latched baby in the cross cradle hold on the right and the latch looked wide and baby's lips were flanged, but mom was in pain and stated it felt more like a pinch than a pull. When mom was assisted with exaggerating nipple to nose and bringing baby in more quickly as she opened wide, mom reported increased comfort and more of a pulling sensation. Baby nursed about 15 minutes. Mom roused her and offered the left side trying the same ideas, after a few attempts she was able to latch baby more comfortably. When mom stopped supporting her breast on this side, baby's head turned slightly toward the right and mom noticed a change in comfort. Baby nursed another 10 minutes and when she was weighed had transferred 120 ml. Mom was shown the tug of war exercise to hopefully teach baby to extend her tongue further and more consistently over the gumline. Plan: 1. Mom will continue nursing ALD, offering both sides at each feeding and trying the ideas above to get the widest latch. Baby needs one overnight feeding for now, mom could set her alarm for 5 hours so she can get a better chunk of sleep. 2. No medical need to supplement. 3. No need to pump to empty. Reviewed hand expression/using the Ha[place]aa to comfort if needed. 4. Suggested she try the tug of war exercise 4 - 5 times/day. 5. Suggested she use a salt water rinse after every feeding until nipples have scabbed. Mary bottle and instructions given. 6. Will f/u by phone on 02/21 to see how things are going (if no/not much improvement could suggest body work). Meds Home Medications and Allergies Home Medications Medication Instructions Recorded Confirmed Type docosahexaenoic acid 200 mg 200 mg PO DAILY 09/15/22 02/06/24 History capsule ( DHA) famotidine 20 mg tablet 20 mg PO QHS 12/08/23 02/06/24 History amoxicillin 500 mg capsule 500 mg PO TID 02/03/24 02/06/24 History Allergies Allergy/AdvReac Type Severity Reaction Status Date / Time No Known Drug Allergies Allergy Verified 02/06/24 00:45
== END 2024-02-15 10:12 | disposition home or self-care (01) ==
LOC: OB LAC 10:12
PROVIDERS: Visit Provider Obstetrics & Gynecology
DX: Z39.1 Encounter for care and examination of lactating mother (principal)
CPT/HCPCS: G0463

== ENCOUNTER 2024-04-09 08:20 | Outpatient (CLI) | payer OTHER, SELFPAY | END 2024-04-09 08:21 | disposition home or self-care (01) | LOC: NFLDREF 04-26 11:09 | PROVIDERS: Visit Provider Registered Nurse | DX: O24.419 Gestational diabetes mellitus in pregnancy, unspecified control (principal) | CPT/HCPCS: 82947; 82950 ==